=== PATIENT | male | born 1965 | race Caucasian/White ===

== ENCOUNTER 2022-01-04 09:01 | Outpatient (CLI) | payer BC, SELFPAY ==
[2022-01-04 13:51] LABS: Albumin* 4.5 g/dL (3.3-5.0); Chloride* 105 mmol/L (96-114)
[2022-01-04 13:52] LABS: Sodium* 141 mmol/L (135-149)
[2022-01-04 13:54] LABS: Alkaline Phosphatase* 61 U/L (40-150); Aspartate Amino Transferase* 27 U/L (12-35); Blood Urea Nitrogen* 18 mg/dL (7-30); Carbon Dioxide* 29 mmol/L (20-32); Cholesterol* 76 mg/dL (90-199); Creatinine* 0.9 mg/dL (0.5-1.5); Estimated Glomerular Filt Rate 100 ml/min; Glucose* 112 mg/dL (60-115); Total Protein* 6.9 g/dL (6.0-8.3)
[2022-01-04 13:55] LABS: Alanine Aminotransferase* 32 U/L (4-50); Calcium* 9.3 mg/dL (8.4-10.6); HDL Cholesterol* 47 mg/dL (>=40); LDL Cholesterol Calculated 25 mg/dL (<100); Triglycerides* 20 mg/dL (40-149)
[2022-01-04 14:21] LABS: PSA Screen* 0.52 ng/mL (0.10-4.00)
== END 2022-01-04 09:02 | disposition home or self-care (01) ==
PROVIDERS: PCP Family Medicine; Visit Provider Family Medicine
DX: Z00.00 Encounter for general adult medical examination without abnormal findings (principal); R03.0 Elevated blood-pressure reading, without diagnosis of hypertension; Z13.6 Encounter for screening for cardiovascular disorders; Z12.5 Encounter for screening for malignant neoplasm of prostate
CPT/HCPCS: 80053; 80061; 84153

== ENCOUNTER 2022-02-03 06:09 | Outpatient (CLI) | payer BC, SELFPAY | END 2022-02-03 06:10 | disposition home or self-care (01) | PROVIDERS: PCP Family Medicine; Visit Provider Internal Medicine | DX: Z12.11 Encounter for screening for malignant neoplasm of colon (principal); K63.5 Polyp of colon; Z86.010 Personal history of colon polyps | CPT/HCPCS: 45380; 45385; 88305; J2250; J3010 ==

== ENCOUNTER 2022-10-18 12:38 | Outpatient (CLI) | payer BC, SELFPAY | END 2022-10-18 12:39 | disposition home or self-care (01) | LOC: NFLDREF 10-20 06:43 | PROVIDERS: PCP Family Medicine; Referring Provider Family Medicine; Visit Provider Family Medicine | DX: R30.0 Dysuria (principal); N39.0 Urinary tract infection, site not specified; C44.91 Basal cell carcinoma of skin, unspecified | CPT/HCPCS: 87086 ==

== ENCOUNTER 2022-11-06 15:52 | Outpatient (CLI) | payer BC, SELFPAY | END 2022-11-06 15:53 | disposition home or self-care (01) | LOC: NFLDREF 11-08 21:59 | PROVIDERS: PCP Family Medicine; Referring Provider Family Medicine; Visit Provider Family Medicine | DX: N39.0 Urinary tract infection, site not specified (principal) | CPT/HCPCS: 87086 ==

== ENCOUNTER 2023-06-07 08:19 | Outpatient (CLI) | payer BC, SELFPAY ==
--- OUTSIDE RECORDS SUMMARY | 2023-06-28 11:41 | XMS_ITS | Clinical Summary ---
Author Name Unknown Organization [facility] Address [address] [place] [address] Care Team Providers Care Law Enforcement Director Name Role Phone Unavailable Primary Care [...] Type Department Care Team Description 04/30/2023 Telephone [facility] [address] [place], [place] [phone] Teresa Fuller PA-C Forms from Last 3 [...]
--- OUTSIDE RECORDS SUMMARY | 2023-06-28 11:41 | XMS_ITS | Encounter Summary ---
Author Name Unknown Organization [facility] Address [address] [place] [address] Care Team Providers Care Distribution Collection Operator Name Role Phone Unavailable Primary Care Provider Unavailabl e Reason for Visit * Reason Comments Forms Encounter Details Date Type Department Care Team (Late st Contact Info) Description 04/30/2023 Telephone [facility] [address] [place] [address] Teresa Fuller PA-C [address] [place] [phone] Forms Social History Tobacco Use Types Packs/Day [...] leave a message. ANTONIO was faxed to [place] with imaging * Rocío Gray - 04/30/2023 [...] completed form/letter: Faxed to this fax number: [phone] Attn: PMR/35 File #[id number] DanielleGalen Comments: NA [Cook Room Supervisor/Filling Station Equipment Mechanic: If patient would like this sent anywhere other than to themselves, we need them to sign a Release of Information. Does patient have a current release of information on file?] Yes If we are unable to reach you can we leave a detailed message on your voicemail? Yes If we are unable to reach you can we send you a message in [email or web address]? No [Cook Room Supervisor/Filling Station Equipment Mechanic: Forms may take up to 7-10 days [...]
== END 2023-06-07 08:20 | disposition home or self-care (01) ==
LOC: NFLDREF 06-28 11:37
PROVIDERS: PCP Family Medicine; Referring Provider Family Medicine; Visit Provider Family Medicine
DX: R73.03 Prediabetes (principal); Z12.5 Encounter for screening for malignant neoplasm of prostate; I10 Essential (primary) hypertension; Z13.220 Encounter for screening for lipoid disorders
CPT/HCPCS: 80048; 80061; G0103

== ENCOUNTER 2023-06-14 15:39 | Outpatient (CLI) | payer BC, SELFPAY ==
--- OUTSIDE RECORDS SUMMARY | 2023-06-15 05:26 | XMS_ITS | Clinical Summary ---
Author Name Unknown Organization [facility] Address [address] [place] [address] Care Team Providers Care Case Management Director Name Role Phone Unavailable Primary Care Provider Unavailabl e Source Comments You are receiving this document as you are listed as the primary care provider,follow-up provider, or the patient has been referred to you for consultation.This is in compliance with the Medicare andMedicaid EHR Incentive Program,which states Providers who transition their patient to another setting of careor provider of care or refers their patient to another provider of care shouldprovide summary care record for each transition of care or referral. [facility] Allergies No known active allergies Medications Medication Sig Dispensed Refills Start Date End Date Status diclofenac (VOLTAREN) 1 % gel Apply 2 g to skin two times daily as needed. 1 Each 2 10/03/2022 Active Encounters Date Type Department Care Team Description 04/30/2023 Telephone [facility] [address] [place], [place] [id number] Teresa Fuller PA-C Forms from Last 3 Months Social History Tobacco Use Types Packs/Day Years Used Date Smoking Tobacco: Never Smokeless Tobacco: Never Tobacco Cessation:Counseling Given: Not Answered Sex and Gender Information Value Date Recorded Sex Assigned at Not on file Gender Identity Not on file Sexual Orientation Not on file Last Filed Vital Signs Vital Sign Reading Time Taken Comments Blood Pressure - - Pulse - - Temperature - - Respiratory Rate - - Oxygen Saturation - - Inhaled Oxygen Concentration - - Weight 88 kg (194 lb) 10/03/2022 12:42 PM CDT Height 175.3 cm (5' 9) 10/03/2022 12:42 PM CDT Body Mass Index 28.65 10/03/2022 12:42 PM CDT Plan of Treatment Health Maintenance Due Date Last Done Comments Colon Cancer Screening Plan Due 1965 Diabetes Screening- (based o n age and BMI) 1964 Hep C Screening (Preventive Services) 1964 PSA Screening Discussion 1964 HIV Screening (Preventive Services) 1980 Adult Preventive Visit 1982 DTaP/Tdap/Td (1 - Tdap) 11/16/1983 HepB (1) 11/16/1983 Cholesterol 11/16/1999 Zoster/Shingles (2 of 2) 08/12/2022 06/17/2022 COVID-19 Vaccine (4 - 2022-2 4 season) 2022 06/09/2021, 05/27/2020, 04/29/2020 Influenza (#1) 2022 11/23/2020, 11/27/2019, 10/26/2010 HepA Aged Out No longer eligi ble based on patient's age to complete this topic Hib Aged Out No longer eligi ble based on patient's age to complete this topic IPV (Polio) Aged Out No longer eligi ble based on patient's age to complete this topic MCV4 Aged Out No longer eligi ble based on patient's age to complete this topic Pneumococcal Aged Out No longer eligi ble based on patient's age to complete this topic
--- OUTSIDE RECORDS SUMMARY | 2023-06-15 05:26 | XMS_ITS | Encounter Summary ---
Author Name Unknown Organization [facility] Address [address] [place] [address] Care Team Providers Care Targeteer Name Role Phone Unavailable Primary Care Provider Unavailabl e Reason for Visit * Reason Comments Forms Encounter Details Date Type Department Care Team (Late st Contact Info) Description 04/30/2023 Telephone [facility] [address] [place] [address] Teresa Fuller PA-C [address] [place] [phone] Forms Social History Tobacco Use Types Packs/Day Years Used Date Smoking Tobacco: Never Smokeless Tobacco: Never Sex and Gender Information Value Date Recorded Sex Assigned at Not on file Gender Identity Not on file Sexual Orientation Not on file documented as of this encounter Nursing Notes * Chris Peter RN - 04/30/2023 11:38 AM CDT Pt was called and unable to leave a message. [place]TON[place] faxed to [place] with imaging * Rocío Gray - 04/30/2023 8:54 AM CDT FORMS / LETTERS / RTW / WORKABILITY Who is requesting the letter/form: Patient What form/letter are you requesting: Patient [facility] Why is the form/letter needed: Patient's continued care Where was the form dropped off: NA How would you like to receive the completed form/letter: Faxed to this fax number: [phone] Attn: PMR/35 File #[id number] DanielleGalen Comments: NA [Store Warehouse Associate/Math Specialist: If patient would like this sent anywhere other than to themselves, we need them to sign a Release of Information. Does patient have a current release of information on file?] Yes If we are unable to reach you can we leave a detailed message on your voicemail? Yes If we are unable to reach you can we send you a message in [employer]? No [Store Warehouse Associate/Math Specialist: Forms may take up to 7-10 days to complete. Letters may take up to 1-2 business days. We will complete it as soon as possible and return/send it to the location you are requesting.] documented in this encounter Plan of Treatment Not on file documented as of this encounter Visit Diagnoses Not on filedocumented in this encounter
== END 2023-06-14 15:40 | disposition home or self-care (01) ==
LOC: NFLDREF 06-15 05:25
PROVIDERS: PCP Family Medicine; Referring Provider Family Medicine; Visit Provider Family Medicine
DX: R82.90 Unspecified abnormal findings in urine (principal); N39.0 Urinary tract infection, site not specified
CPT/HCPCS: 87086

== ENCOUNTER 2023-06-26 13:30 | Outpatient (CLI) | payer BC, SELFPAY ==
--- OUTSIDE RECORDS SUMMARY | 2023-06-26 13:33 | XMS_ITS | Clinical Summary ---
Author Name Unknown Organization [facility] Address [address] [place] [address] Care Team Providers Care Target Man Name Role Phone Unavailable Primary Care Provider [...] Type Department Care Team Description 04/30/2023 Telephone [facility] [address] [place], [place] [phone] Teresa Fuller PA-C Forms from Last 3 [...] 4 season) 2022 06/09/2021, 05/27/2020, 04/29/2020 Influenza (Season Ended) 2023 021, 11/27/2019, 10/26/2010 HepA Aged Out No longer [...]
--- OUTSIDE RECORDS SUMMARY | 2023-06-26 13:33 | XMS_ITS | Encounter Summary ---
Author Name Unknown Organization [facility] Address [address] [place] [address] Care Team Providers Care Boiler Blower Name Role Phone Unavailable Primary Care Provider Unavailabl e Reason for Visit * Reason Comments Forms Encounter Details Date Type Department Care Team (Late st Contact Info) Description 04/30/2023 Telephone [facility] [address] [place] [address] Teresa Fuller PA-C [address] [place] [phone] Forms Social History Tobacco Use Types Packs/Day [...] leave a message. ANTONIO was faxed to [place] with imaging * Rocío Gray - 04/30/2023 [...] completed form/letter: Faxed to this fax number: [phone] Attn: PMR/35 File #[id number] DanielleGalen Comments: NA [Network Desktop Support Specialist/Or Rn: If patient would like this sent anywhere other than to themselves, we need them to sign a Release of Information. Does patient have a current release of information on file?] Yes If we are unable to reach you can we leave a detailed message on your voicemail? Yes If we are unable to reach you can we send you a message in [employer]? No [Network Desktop Support Specialist/Or Rn: Forms may take up to 7-10 days [...]
[2023-06-26] MEDS: PERFLUTREN LIPID MICROSPHERES 2 ML VIAL IV (14:15)
--- NOTE | 2023-06-26 15:50 | W.PM.STED ---
Stress Test Note Date Date of test: 06/26/23 Providers Primary care provider: Edwin Retana Stress test physician: Maninder Valladares Stress Test Note Stress test ordered: Stress Echo Indication for test: Dyspnea Stress test medicine: Definity Results discussion: Patient is a very nice 57-year-old gentleman who presents for the above test after discussion the risks benefits side effects he would like to proceed cardiac stress test medical history form is reviewed. EKG is reviewed pretest, this shows a ventricular rate that is in sinus of 58, blood pressure 172/95. Right bundle-branch block morphology is noted. No acute ST wave changes patient is exercised for a total time of 9 minutes 40 seconds, achieved a metabolic clubbing 11.1. Test is terminated because of fulfillment of protocol, his maximum heart rate was 163 and target predicted of 118%. Maximum blood pressure was 190/110. There are no dysrhythmias, he had no complaints. There is no ST wave changes suggestive of ischemia. Any recovered normally in the recovery.. Impression: Negative electrographic portion of stress echo, conditioning was felt to be good Follow up suggested: Await echo images clinical correlation with these will be needed, patient left this testing facility in excellent condition back to baseline.
[2023-06-26 16:34] VITALS: BP 172/99; PULSE 97
== END 2023-06-26 13:31 | disposition home or self-care (01) ==
LOC: STRESS 13:31
PROVIDERS: PCP Family Medicine; Visit Provider Family Medicine
DX: R06.09 Other forms of dyspnea (principal)
CPT/HCPCS: 93016; 93325; 93351; Q9957

== ENCOUNTER 2023-10-19 16:13 | Outpatient (CLI) | payer BC, SELFPAY ==
--- OUTSIDE RECORDS SUMMARY | 2023-10-26 09:58 | XMS_ITS | Clinical Summary ---
Author Organization [facility] Address [address] [place] [address] Care Team Providers Care Solo Truck Driver Name Role Phone Unavailable Primary Care Provider Unavailabl e Source Comments You are receiving this document as you are listed as the primary care provider,follow-up provider, or the patient has been referred to you for consultation.This is in compliance with the Medicare and[facility] E[facility] Incentive Program,which states Providers who transition [...] as needed. 1 Each 2 10/03/2022 Active Social History Tobacco Use Types Packs/Day Years [...] Comments Colon Cancer Screening Plan Due 1964 Hep C Screening (Preventive Services) 1964 PSA Screening Discussion 1964 HIV Screening (Preventive Services) 1980 Adult Preventive Visit 1982 DTaP/Tdap/Td (1 - Tdap) 11/16/1983 HepB (1) 11/16/1983 Cholesterol 11/16/1999 Zoster/Shingles (2 of 2) 08/12/2022 06/17/2022 COVID-19 Vaccine (4 - 2022-2 4 season) 2023 06/09/2021, 05/27/2020, 04/29/2020 Influenza (#1) 2023 11/23/2020, 11/27/2019, 10/26/2010 HepA Aged Out No [...]
== END 2023-10-19 16:14 | disposition home or self-care (01) ==
LOC: NFLDREF 10-26 09:57
PROVIDERS: PCP Family Medicine; Referring Provider Family Medicine; Visit Provider Family Medicine
DX: I10 Essential (primary) hypertension (principal)
CPT/HCPCS: 80053

== ENCOUNTER 2023-12-01 11:09 | Outpatient (CLI) | payer BC, SELFPAY ==
--- OUTSIDE RECORDS SUMMARY | 2023-12-04 14:49 | XMS_ITS | Clinical Summary ---
Author Organization [facility] Address [address] [place] [address] Care Team Providers Care Rehabilitation Assistant Name Role Phone Unavailable Primary Care Provider Unavailabl e Source Comments You are receiving this document as you are listed as the primary care provider,follow-up provider, or the patient has been referred to you for consultation.This is in compliance with the Medicare and[facility] Program,which states Providers who [...] 2) 08/12/2022 06/17/2022 COVID-19 Vaccine (4 - 2023-2 5 season) 2023 06/09/2021, 05/27/2020, 04/29/2020 Influenza (#1) 2023 11/23/2020, 11/27/2019, 10/26/2010 HepA Aged Out No longer eligi ble based on patient's age to complete this topic Hib Aged Out No longer eligi ble based on patient's age to complete this topic IPV (Polio) Aged Out No longer eligi ble based on patient's age to complete this topic RSV Aged Out No longer eligi ble based on patient's age to complete this topic MCV4 Aged Out No longer eligi ble based on patient's age to complete this topic Pneumococcal Aged Out No longer eligi ble based on patient's age to complete this topic
== END 2023-12-01 11:10 | disposition home or self-care (01) ==
LOC: NFLDREF 12-04 14:48
PROVIDERS: PCP Family Medicine; Referring Provider Family Medicine; Visit Provider Family Medicine
DX: R39.9 Unspecified symptoms and signs involving the genitourinary system (principal); N39.0 Urinary tract infection, site not specified
CPT/HCPCS: 87086

== ENCOUNTER 2024-01-07 10:27 | Outpatient (CLI) | payer BC, SELFPAY ==
--- OUTSIDE RECORDS SUMMARY | 2024-01-07 10:29 | XMS_ITS | Continuity of Care Document ---
Author Organization [facility] Address [address] [place] [address] Assessment Encounter Date Assessment Date Assessment LastModified by Organization Details LastModified Time 12/13/2023 12/13/2023 58 Y/O MALE, HX OF BULBOUS UREYTHRAL STRICTURE. HE SELF DILATES NEEDED. LAST SEEN 2017. HAD REVIEWED OPTIONS IN THE PAST. NOW INTERESTED IN MORE DEFINITIVE RX. [email or web address] Not available 12/13/2023 14:00:30 Plan of Treatment Reminders Order Date Submit Date Provider Last Modified By Organization Details Last Modified Time Details Appointments HOSPITAL 45 2023 03:15P M Michael Vidal MD Not available Not available Not available LAB 30 2023 10:00A M JOVITA-E POORNIMA Not available Not available Not available ESTABLISH ED 10 2024 10:20A M Michael Vidal MD Not available Not available Not available Lab urinalysi s, dipstick 2023 024 [email or web address] [facility], [address], [place], [address], 12/13/2023 12:26:58 culture, urine 2023 024 [facility], [address], [address], [place], [address], 12/15/2023 12:11:31 Referral None recorded. Procedures None recorded. Surgeries None recorded. Imaging None recorded. Medication Orders sulfameth oxazole 800 mg-trimet hoprim 160 mg tablet 2023 024 [email or web address] [facility] [address], [address] [place], [address], 12/13/2023 14:01:24 Patient TargetsNo targets recorded. Patient InstructionsNo instructions recorded. Reason for Referral None Reported. Results Created Date Observation Date Name Description Value Unit Range Abnormal Flag Note LastModifiedBy Organization Detail LastModifiedTime 12/13/1912/13/2023 urina lysis , dipst ick BLOOD Trace (5 RBC/uL ) Not Available [facility] [address], [place], [address], 12/13/2023 12:26:10 12/13/1912/13/2023 urina lysis , dipst ick BILIRUBIN Negati ve Not Available [facility] [address], [place], [address], 12/13/2023 12:26:10 12/13/1912/13/2023 urina lysis , dipst ick UROBILINOGEN 0.2 mg/dL (Norm) Not Available [facility] [address], [place], [address], 12/13/2023 12:26:10 12/13/19 24 12/13/2023 urina lysis , dipst ick KETONES Negati ve Not Available [facility] [address], [place], [address], 12/13/2023 12:26:10 12/13/1912/13/2023 urina lysis , dipst ick PROTEIN Negati ve Not Available [facility] [address], [place], [address], 12/13/2023 12:26:10 12/13/1912/13/2023 urina lysis , dipst ick NITRITES Negati ve Not Available [facility] [address], [place], [address], 12/13/2023 12:26:10 12/13/19 24 12/13/2023 urina lysis , dipst ick GLUCOSE Negati ve Not Available [facility] [address], [place], [address], 12/13/2023 12:26:10 12/13/19 24 12/13/2023 urina lysis , dipst ick p.H. 6.5 Not Available [facility] [address], [place], [address], 12/13/2023 12:26:10 12/13/1912/13/2023 urina lysis , dipst ick S.G. (Specific [place]) 1.015 Not Available [facility] [address], [place], [address], 12/13/2023 12:26:10 12/13/1912/13/2023 urina lysis , dipst ick LEUKOCYTES Large (500 WBC/uL ) Not Available [facility] [address], [place], [address], 12/13/2023 12:26:10 Result Notes None recorded. Problems Name Problem SNOMED Code Status Onset Date Resolution Date Notes Provider Name and Address Organization Details Recorded Time Urethral stricture 92375141 Active 2012 598.9 : URETHRAL STRICTURE STENOSIS Not Available [facility] 0 01:57:19 Acute cystitis 26218811 Active 2023 Fredy Sutherland MD [address] [facility],[address], [address] , [facility] 4 10:59:05 Problem Notes None recorded. Procedures Surgical History Date Name Laterality Status Provider Name and Address Organization Details Recorded Time 4 COMPLEX VISIT completed Michael Vidal MD [address] [facility],[address], [address], [facility] 12/13/2023 09:53:32 10/31/202 4 Bladder Scan completed Veronica Ortiz [facility] 12/13/2023 12:26:03 COMPLEX VISIT completed Fredy Sutherland MD [address] [place] [address],[address], [address], [facility] 10/03/2023 10:58:35 Imaging Results None recorded. Procedure Notes None recorded. Medical Equipment None Reported. Allergies No known drug allergies Medications Name Sig Start Date Stop Date Status Note LastModified by Organization Details LastModified Time potassium chloride ER 10 mEq tablet,exten ded release TAKE ONE TABLET (10 MEQ) ORALLY EVERY DAY active Not Available Not Available No t Available chlorthalido ne 25 mg tablet TAKE ONE TABLET (25 MG) ORALLY EVERY DAY active Not Available Not Available No t Available amlodipine 5 mg tablet TAKE 1 TABLET BY MOUTH EVERY DAY active Not Available Not Available No t Available ciprofloxaci n 500 mg tablet TAKE ONE TABLET BY MOUTH TWICE DAILY FOR 7 DAYS 12/12 completed Not Available Not Available Not Available sulfamethoxa zole 800 mg-trimethop rim 160 mg tablet TAKE 1 TABLET BY MOUTH EVERY 12 HOURS active Not Available Not Available No t Available amoxicillin 875 mg tablet TAKE 1 TABLET BY MOUTH TWICE A DAY 12/12 completed Not Available Not Available Not Available hydrochlorot hiazide 25 mg tablet Take 1 tablet every day by oral route. active Not Available Not Available No t Available azelastine 137 mcg (0.1 %) nasal spray 2 SPRAYS TO EACH NOSTRIL TWICE A DAY active Not Available Not Available No t Available fluticasone propionate 50 mcg/actuatio n nasal spray,suspen toby SPRAY 2 SPRAYS INTO EACH NOSTRIL EVERY DAY active Not Available Not Available No t Available Vitals Date Recorded Body height Body mass index (BMI) Body weight Provider Name and Address Organization Details Last Updated DateTime 12/13/2023 175.26 cm 28.5 kg/m2 05978.33 g Veronica Ortiz [facility] 12/13/2023 12:27:23 Social History Question Answer Notes LastModified by Organizat ion Details LastModified Time Tobacco Smoking Status Never Smoker Fredy Sutherland MD [address] [place] [address],[address], [address], [facility] 10/02/2023 15:58:13 What Is Your Level Of Alcohol Consumption? Occasional Information not available 10/02/2023 Marital Status Unknown [email or web address] Informati on not available 07/24/2019 What Was The Date Of Your Most Recent Tobacco Screening? 10/02/2023 Information not available 10/02/2023 How Many Days In The Past Year Have You Consumed 5 Or More Drinks? 0 [email or web address] Information not available 12/13/2023 Sex: Unknown Functional Status None recorded. Mental Status None recorded. Family History Nothing Reported. Medical History Condition Response High Blood Pressure Y Cancer N Immunizations Vaccine Type Date Status Provider Name and Address Organization Details Recorded Time Influenza, MDCK, quadrivalent, PF 11/27/2019 completed Fredy Sutherland MD [address] [place] [address], [address], [facility] 10/02/2023 15:57:26 Influenza, MDCK, quadrivalent, preservative 11/23/2020 completed Fredy Sutherland MD [address] [place] [address], [address], [facility] 10/02/2023 15:57:26 zoster recombinant 06/17/2022 completed Fredy collins MD [address] [place] [address], [address], [facility] 10/02/2023 15:57:26 zoster recombinant 01/14/2023 completed Fredy collins MD [address] [place] [address], [address], [facility] 10/02/2023 15:57:26 COVID-19, mRNA, LNP-S, PF, 100 mcg/0.5mL dose or 50 mcg/0.25mL dose 04/29/2020 completed Fredy Sutherland MD [address] [place] [address], [address], [facility] 10/02/2023 15:57:26 COVID-19, mRNA, LNP-S, PF, 100 mcg/0.5mL dose or 50 mcg/0.25mL dose 05/27/2020 completed Fredy Sutherland MD [address] [place] [address], [address], [facility] 10/02/2023 15:57:26 COVID-19, mRNA, LNP-S, PF, 100 mcg/0.5mL dose or 50 mcg/0.25mL dose 06/09/2021 completed Fredy Sutherland MD [address] [place] [address],[address], [place], [address], [facility] 10/02/2023 15:57:26 Tdap 06/11/2023 completed Fredy Sutherland MD [address] [place] [address],[address], [place], [address], [facility] 10/02/2023 15:57:26 Influenza, split virus, trivalent, preservative 10/26/2010 completed Fredy Sutherland MD [address] [place] [address],[facility] [address] [place], [address], [facility] 10/02/2023 15:57:26 Past Encounters Encounter ID Performer Location Encounter Start Date Encounter Closed Date Diagnosis/Indication Diagnosis SNOMED-CT Code Diagnosis ICD10 Code [id number] Micheal Vidal MD [facility] [address] [place] [address] 12/13/2023 12:06:04 12/14/2023 13:05:13 Urethral stricture 03037981 N35.919 Poor stream of urine 162 410022 R39.12 Incomplete emptying of urinary bladder 138917038 R39.14 Urinary tr act infectious disease 66455292 N39.0 Health Concerns Section Related Observation LastModified by Organization Detai ls LastModified Time None Recorded Concern Status LastModified by Organization Details LastModified Time None Recorded Payers Encounter Date Sequence Insurance Name Policy Number Policy Carlos Covered Member ID Carlos Member ID Guarantor Name 12/13/2023 1 [place] [id number] Galen Santos [id number] Galen Santos Notes Date Note Type Note Provider Name and Address Organization Details Recorded Time 12/13/2023 text/html 58 Y/O MALE, HX OF BULBOUS URETHRAL STRICTURE. SELF DILATES. LAST SEEN 2018. HE STATES CATH PASSES EASILY. INTERESTED IN MORE DEFINITIVE RX. 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 Last dilated 2018. Currently self-cathing on average once per week with a 12F catheter. Michael Vidal MD [address] [place] [address],[address], [address], [facility] 12/13/2023 14:02:58
--- OUTSIDE RECORDS SUMMARY | 2024-01-07 10:29 | XMS_ITS | Clinical Summary ---
Author Organization [facility] Address [address] [place] [address] Care Team Providers Care Public Stenographer Name Role Phone Unavailable Primary Care Provider Unavailabl e Source Comments You are receiving this document as you are listed as the primary care provider,follow-up provider, or the patient has been referred to you for consultation.This is in compliance with the Medicare and[facility] E[facility] Incentive Program,which states Providers who transition [...] on patient's age to complete this topic Infant RSV Aged Out No longer eligi ble based on patient's age to complete this topic MCV4 Aged Out No longer eligi ble based on patient's age to complete this topic Pneumococcal Aged Out No longer eligi ble based on patient's age to complete this topic
== END 2024-01-07 10:28 | disposition home or self-care (01) ==
PROVIDERS: PCP Family Medicine; Visit Provider Family Medicine
DX: E87.6 Hypokalemia (principal); Z01.818 Encounter for other preprocedural examination
CPT/HCPCS: 80048

== ENCOUNTER 2024-06-06 12:23 | Outpatient (CLI) | payer BC, SELFPAY | END 2024-06-06 12:24 | disposition home or self-care (01) | LOC: NFLDREF 06-09 01:47 | PROVIDERS: PCP Family Medicine; Referring Provider Family Medicine; Visit Provider Physician Assistant | DX: N39.0 Urinary tract infection, site not specified (principal); B95.7 Other staphylococcus as the cause of diseases classified elsewhere | CPT/HCPCS: 87086; 87186 ==

== ENCOUNTER 2024-07-11 08:12 | Outpatient (CLI) | payer BC, SELFPAY | END 2024-07-11 08:13 | disposition home or self-care (01) | LOC: NFLDREF 07-16 00:26 | PROVIDERS: PCP Family Medicine; Referring Provider Family Medicine; Visit Provider Family Medicine | DX: R73.03 Prediabetes (principal); E78.5 Hyperlipidemia, unspecified; Z12.5 Encounter for screening for malignant neoplasm of prostate | CPT/HCPCS: 80053; 80061; G0103 ==

== ENCOUNTER 2024-08-07 13:09 | Outpatient (CLI) | payer BC, SELFPAY | END 2024-08-07 13:10 | disposition home or self-care (01) | LOC: NFLDREF 08-11 11:45 | PROVIDERS: PCP Family Medicine; Referring Provider Family Medicine; Visit Provider Physician Assistant | DX: N39.0 Urinary tract infection, site not specified (principal) | CPT/HCPCS: 87086 ==

== ENCOUNTER 2024-08-20 13:54 | Outpatient (CLI) | payer BC, SELFPAY | END 2024-08-20 13:55 | disposition home or self-care (01) | LOC: NFLDREF 13:56 | PROVIDERS: PCP Family Medicine; Visit Provider Family Medicine | DX: Z01.818 Encounter for other preprocedural examination (principal); R31.9 Hematuria, unspecified | CPT/HCPCS: 80048; 87086 ==

== ENCOUNTER 2025-02-09 07:10 | Outpatient (CLI) | payer BC, SELFPAY ==
--- NOTE | 2025-02-09 08:31 | P.ANES_ITS ---
Anesthesia Charges Start Date/Time Anesthesia Start Date: 02/09/25 Anesthesia Start Time: 07:49 Stop Date/Time Anesthesia Stop Date: 02/09/25 Anesthesia Stop Time: 08:30 Coding CPT Codes CPT Codes: ANES LWR INTST NDSC NOS - 74023 ([id number]) P2 - PATIENT W/MILD SYST DISEASE, QZ - SNOW REMOVING SUPERVISOR SVC W/O CHANNEL SALES MANAGER BY
--- NOTE | 2025-02-09 08:31 | W.ANESCHARGE ---
Anesthesia Charges Start Date/Time Anesthesia Start Date: 02/09/25 Anesthesia Start Time: 07:49 Stop Date/Time Anesthesia Stop Date: 02/09/25 Anesthesia Stop Time: 08:30 Coding CPT Codes CPT Codes: ANES LWR INTST NDSC NOS - [id number] ([id number]) P2 - PATIENT W/MILD SYST DISEASE, QZ - RADAR SIGNAL PROCESSING ENGINEER [facility] W/O HOSPICE CLINICAL MANAGER BY
== END 2025-02-09 07:11 | disposition home or self-care (01) ==
LOC: OP CLINIC 07:11
PROVIDERS: PCP Family Medicine; Visit Provider Surgery
DX: D12.2 Benign neoplasm of ascending colon (principal); D12.3 Benign neoplasm of transverse colon; Z86.0100 Personal history of colon polyps, unspecified
CPT/HCPCS: 00811; 45381; 45385; J2704